=== PATIENT | male | born 1980 | race Caucasian/White ===

== ENCOUNTER 2018-01-25 09:13 | Emergency (ER) | payer SELFPAY ==
[~2018-01-25] VITALS: Ht 182.9 cm; Wt 111.1 kg
[~2018-01-25 09:13] MED LIST: ALBU90OI INH; ALBU90OI6 INH; ALBU90OI61 INH; AMOX500 PO; CYCL10 PO; DOXY100 PO; ERYT250 PO; HYDACE25S PR; HYDACE5 PO; HYDGUAL120 PO; IBUP600 PO; Monodox100 MG PO; NAPR500 PO; NAPR550 PO; NITR2TO30 TOP; OXYACE5T PO; OXYACE7.5T PO; PENVK500 PO; PROCODE120 PO; PROM25 PO; RXHYDACE PO; SPACE CHAMBER1 EACH MC; TRAM50 PO
[2018-01-25] MEDS ORDERED: NEOPOLHCSU RIGHTEAR (10:02)
== END 2018-01-25 10:14 | disposition home or self-care (01) ==
LOC: ER 09:13
DX: H60.91 Unspecified otitis externa, right ear (principal); F17.200 Nicotine dependence, unspecified, uncomplicated; Z88.6 Allergy status to analgesic agent
CPT/HCPCS: 99282

== ENCOUNTER 2018-04-20 10:34 | Emergency (ER) | payer MEDICAID ==
[~2018-04-20] VITALS: Ht 185.4 cm; Wt 108.9 kg
[~2018-04-20 10:34] MED LIST changes: +NEOPOLHCSU RIGHTEAR
[2018-04-20] MEDS ORDERED: Ultram50 MG PO (11:01)
[2018-04-20] MEDS ORDERED: Veetids 500500 MG PO (11:01)
== END 2018-04-20 11:20 | disposition home or self-care (01) ==
LOC: ER 10:34
DX: K08.89 Other specified disorders of teeth and supporting structures (principal); Z88.5 Allergy status to narcotic agent; Z88.8 Allergy status to other drugs, medicaments and biological substances; F17.200 Nicotine dependence, unspecified, uncomplicated
CPT/HCPCS: 96372; 99283; J1885

== ENCOUNTER 2021-08-30 03:00 | Emergency (ER) | payer OTHER ==
[~2021-08-30] VITALS: Ht 182.9 cm; Wt 127.0 kg
[~2021-08-30 03:00] MED LIST changes: +Ultram50 MG PO; +Veetids 500500 MG PO
[2021-08-30] MEDS ORDERED: SULTRIDS PO ×2 (03:17→03:33)
== END 2021-08-30 03:37 | disposition home or self-care (01) ==
LOC: ER 03:00
DX: L03.311 Cellulitis of abdominal wall (principal); F17.200 Nicotine dependence, unspecified, uncomplicated
CPT/HCPCS: 99282; A9270

== ENCOUNTER 2021-09-01 22:31 | Emergency (ER) | payer OTHER ==
[~2021-09-01] VITALS: Ht 182.9 cm; Wt 127.0 kg
[~2021-09-01 22:31] MED LIST changes: +SULTRIDS PO
[2021-09-02] MEDS ORDERED: Vibramycin100 MG PO (02:14)
== END 2021-09-01 23:16 | disposition left against medical advice (07) ==
LOC: ER 22:31
DX: Z53.21 Procedure and treatment not carried out due to patient leaving prior to being seen by health care provider (principal)

== ENCOUNTER 2021-09-02 01:29 | Emergency (ER) | payer OTHER ==
[~2021-09-02] VITALS: Ht 182.9 cm; Wt 127.0 kg
[2021-09-02] MEDS ORDERED: Vibramycin100 MG PO (02:14)
== END 2021-09-02 23:02 | disposition home or self-care (01) ==
LOC: ER 01:29
DX: L02.211 Cutaneous abscess of abdominal wall (principal); Z88.6 Allergy status to analgesic agent; Z88.5 Allergy status to narcotic agent; F17.200 Nicotine dependence, unspecified, uncomplicated; Z79.899 Other long term (current) drug therapy
CPT/HCPCS: 99282; A9270

== ENCOUNTER 2024-07-10 18:51 | Emergency (ER) | payer OTHER ==
[~2024-07-10] VITALS: Ht 182.9 cm; Wt 108.9 kg
[~2024-07-10 18:51] MED LIST changes: +Vibramycin100 MG PO
[2024-07-10 19:35] LABS: BASOPHILS ABSOLUTE AUTO 0.04 K/mm3 (0.00-0.23); BASOPHILS PERCENT AUTO 1 % (0-2); EOSINOPHILS ABSOLUTE AUTO 0.22 K/mm3 (0.00-0.68); EOSINOPHILS PERCENT AUTO 3 % (0-6); Hematocrit 41.8 % (37.0-53.0); Hemoglobin 13.9 g/dL (13.5-17.5); IMMATURE GRAN ABSOLUTE AUTO 0.04 K/mm3 (0.00-0.10); IMMATURE GRAN PERCENT AUTO 1 % (0-1); LYMPHOCYTES ABSOLUTE AUTO 2.72 K/mm3 (0.84-5.20); LYMPHOCYTES PERCENT AUTO 35 % (21-46); MONOCYTES ABSOLUTE AUTO 0.83 K/mm3 (0.16-1.47); MONOCYTES PERCENT AUTO 11 % (4-13); Mean Corpuscular HGB 30.3 pg (26.0-34.0); Mean Corpuscular HGB Conc 33.3 g/dL (31.5-36.5); Mean Corpuscular Volume 91 fL (80-100); Mean Platelet Volume 10.3 fL (9.1-12.4); NEUTROPHILS ABSOLUTE AUTO 3.89 K/mm3 (1.96-9.15); NEUTROPHILS PERCENT AUTO 50 % (41-73); Platelet Count 250 K/mm3 (150-400); RDW Coefficient Variation 12.1 % (11.7-14.2); RDW Standard Deviation 40.8 fL (35.1-46.3); Red Blood Cell Count 4.59 M/mm3 (4.30-5.90); White Blood Cell Count 7.74 K/mm3 (4.00-11.30)
[2024-07-10 19:55] LABS: Albumin, Blood 3.1 g/dL (3.4-5.0); Albumin/Globulin Ratio 0.8 (0.8-1.8); Bilirubin, Total 0.3 mg/dL (0.1-1.0); Bun/Creatinine Ratio 16.2 (12.0-20.0); Calcium, Blood 8.4 mg/dL (8.5-10.1); Creatinine, Blood 0.93 mg/dL (0.60-1.20); Globulin, Blood 3.7 g/dL (2.2-4.0); Potassium, Blood 4.2 mmol/L (3.5-5.5); Total Protein, Blood 6.8 g/dL (6.4-8.2)
[2024-07-11 00:15] VITALS: BP 159/97
[2024-07-11] MEDS ORDERED: Methocarbamol 500 MG Tab PO ONE (00:30)
[2024-07-11] MEDS ORDERED: METHOCARBAMOL1000 MG PO (00:33)
== END 2024-07-11 00:44 | disposition home or self-care (01) ==
LOC: ER 18:51
PROVIDERS: Student in an Organized Health Care Education/Training Program
DX: R25.2 Cramp and spasm (principal); F17.200 Nicotine dependence, unspecified, uncomplicated; Z88.6 Allergy status to analgesic agent; Z88.5 Allergy status to narcotic agent
CPT/HCPCS: 71046; 80053; 83690; 84484; 85025; 93005; 93010; 99285-25; A9270